=== PATIENT | female | born 1985 | race Asian ===

== ENCOUNTER 2020-08-21 08:00 | Outpatient (REF) | payer OTHER, SELFPAY ==
[2020-08-21 09:01] LABS: COVID-19 Test Negative (Negative)
== END 2020-08-21 08:01 | disposition home or self-care (01) ==
LOC: HO.LAB 08:00
PROVIDERS: Visit Provider Internal Medicine
DX: Z20.828 Contact with and (suspected) exposure to other viral communicable diseases (principal)
CPT/HCPCS: 87635

== ENCOUNTER 2020-08-25 06:00 | Outpatient (REF) | payer OTHER, SELFPAY ==
[2020-08-25 07:28] LABS: COVID-19 Test Negative (Negative)
== END 2020-08-25 06:01 | disposition home or self-care (01) ==
LOC: HO.LAB 06:00
PROVIDERS: Visit Provider Internal Medicine
DX: Z20.828 Contact with and (suspected) exposure to other viral communicable diseases (principal)
CPT/HCPCS: 87635

== ENCOUNTER 2020-10-03 16:01 | Outpatient (REF) | payer OTHER, SELFPAY ==
[2020-10-03 16:54] LABS: COVID-19 Test Negative (Negative)
== END 2020-10-03 16:02 | disposition home or self-care (01) ==
LOC: HO.EMPCOV 16:01
PROVIDERS: Visit Provider Internal Medicine
DX: Z20.828 Contact with and (suspected) exposure to other viral communicable diseases (principal)
CPT/HCPCS: 87635; C9803